=== PATIENT | female | born 1965 | race Caucasian/White ===

== ENCOUNTER 2017-11-08 12:44 | Emergency (ER) | payer BC ==
[2017-11-08 14:25] VITALS: BP 106/55
[2017-11-08] MEDS ORDERED: Ketorolac INJ* 30 MG/ML 1 ML VIAL IM ONE (14:48)
--- NOTE | 2017-11-08 14:48 | UC ---
Skin Complaint HPI - HPI Summary HPI Summary: patient bit by insect on right buttock, bites present, red, no sign of infection, causes pain down the leg - History of Current Complaint Hx Obtained From: Patient ?: No Onset/Duration: Sudden Onset, Lasting Days Skin Exposure Onset/Duration: Days Ago Timing: Constant Onset Severity: Moderate Current Severity: Moderate Pain Intensity: 6 Location: Discrete Character: Redness, Raised, Painful Aggravating Factor(s): Nothing Alleviating Factor(s): Nothing Associated Signs & Symptoms: Positive: Negative <Jody Mccallum - Last Filed: 11/08/17 14:41> <Cheyanne Thomason - Last Filed: 11/09/17 07:46> - History of Current Complaint Chief Complaint: UCWounds Time Seen by Provider: 11/08/17 14:27 Stated Complaint: POSS SPIDER BITE (1 WK AGO) - RT LEG - Allergy/Home Medications Allergies/Adverse Reactions: Allergies Allergy/AdvReac Type Severity Reaction Status Date / Time No Known Allergies Allergy Verified 11/08/17 14:14 Home Medications: Home Medications Acetaminophen [8Hr Arthritis Pain Relief] 2 tab PO Q8HR PRN 11/08/17 [History Confirmed 11/08/17] Aspirin/Acetaminophen/Caffeine [Excedrin Migraine Caplet] 2 tab PO Q8HR PRN [History Confirmed 11/08/17] Carbamazepine [Tegretol] 200 mg PO BID 11/08/17 [History Confirmed 11/08/17] Eprim/Linoleic/Gamolenic/Cranb [Evening [place] Oil Softgel] 1 tab PO DAILY [History Confirmed 11/08/17] Topiramate [Topamax] 100 mg PO DAILY 11/08/17 [History Confirmed 11/08/17] buPROPion SR TAB* [Wellbutrin SR TAB*] 1 tab PO DAILY 11/08/17 [History Confirmed 11/08/17] carBAMazepine TAB(*) [Tegretol TAB(*)] 400 mg PO DAILY 11/08/17 [History Confirmed 11/08/17] Review of Systems Constitutional: Negative Skin: Other - bug bites Eyes: Negative ENT: Negative Respiratory: Negative Cardiovascular: Negative Gastrointestinal: Negative Genitourinary: Negative Motor: Negative Neurovascular: Negative Musculoskeletal: Negative Neurological: Negative Psychological: Negative Is Patient Immunocompromised?: No All Other Systems Reviewed And Are Negative: Yes <Jody Mccallum - Last Filed: 11/08/17 14:41> PMH/Surg Hx/FS Hx/Imm Hx Previously Healthy: Yes - Surgical History Surgical History: Yes Surgery Procedure, Year, and Place: BILATERAL KNEES, APPENDIX, TUBES TIED AND HYSTERECTOMY; Bladder Biopsy - Family History Known Family History: Positive: Cardiac Disease, Hypertension - Social History Alcohol Use: Occasionally Substance Use Type: Marijuana Substance Use Comment - Amount & Last Used: Daily Smoking Status (MU): Heavy Every Day Tobacco Smoker Type: Cigarettes Amount Used/How Often: 1/2 ppd Household Exposure Type: Cigarettes <Jody Mccallum - Last Filed: 11/08/17 14:41> Physical Exam Triage Information Reviewed: Yes Appearance: Well-Appearing, Well-Nourished, Pain Distress Vital Signs: Initial Vital Signs Temp 98.8 F 11/08/17 14:20 Pulse 68 11/08/17 14:20 Resp 16 11/08/17 14:20 BP 106/55 11/08/17 14:20 Pulse Ox 99 11/08/17 14:20 Vital Signs Reviewed: Yes Eye Exam: Normal ENT Exam: Normal Dental Exam: Normal Neck exam: Normal Respiratory Exam: Normal Respiratory: Positive: Chest non-tender, Lungs clear, Normal breath sounds Cardiovascular Exam: Normal Cardiovascular: Positive: RRR, No Murmur, Pulses Normal Abdominal Exam: Normal Abdomen Description: Positive: Nontender, No Organomegaly, Soft Bowel Sounds: Positive: Present Musculoskeletal Exam: Normal Neurological Exam: Normal Psychological Exam: Normal Skin: Positive: significant lesion(s) - cluster of raised red bumps on right buttock, discreet, no sign of infection <Jody Mccallum - Last Filed: 11/08/17 14:41> Vital Signs: Initial Vital Signs Temp 98.8 F 11/08/17 14:20 Pulse 68 11/08/17 14:20 Resp 16 11/08/17 14:20 BP 106/55 11/08/17 14:20 Pulse Ox 99 11/08/17 14:20 <Cheyanne Thomason - Last Filed: 11/09/17 07:46> Course/Dx - Course Course Of Treatment: hx obtained, exam performed ,meds reviewed, treated for reaction to bug bite - Differential Diagnoses - Skin Complaint Differential Diagnoses: Abscess, Allergic Reaction, Cellulitis, Contact Dermatitis, MRSA, Urticaria - Diagnoses Provider Diagnoses: big bite reaction <Jody Mccallum - Last Filed: 11/08/17 14:41> Discharge - Sign-Out/Discharge Documenting (check all that apply): Discharge - Billing Disposition and Condition Condition: STABLE Disposition: HOME <Jody Mccallum - Last Filed: 11/08/17 14:41> - Billing Disposition and Condition Condition: STABLE Disposition: HOME <Cheyanne Thomason - Last Filed: 11/09/17 07:46> - Discharge Plan Condition: Stable Disposition: HOME Prescriptions: Ibuprofen TAB* [Motrin TAB* 600 MG] 600 mg PO Q6H PRN #24 tab PRN Reason: Pain predniSONE TAB* [Deltasone TAB*] 40 mg PO DAILY #17 tab Patient Education Materials: Insect Bite or Sting (ED) Referrals: Jayy Burnham MD [Primary Care Provider] - Additional Instructions: 1. take the medication as prescribed. 2. warm compresses or soaks multiple times a day 3. can do benadryl for inching 4. FOllow up if not improving Attestation Statement User Type: Provider - I was available for consult. This patient was seen by the OLE[facility]IO. The patient was not presented to, seen by, or examined by me. -Len <Cheyanne Thomason - Last Filed: 11/09/17 07:46>
== END 2017-11-08 15:11 | disposition home or self-care (01) ==
LOC: UCCORT 12:44
DX: S30.860A Insect bite (nonvenomous) of lower back and pelvis, initial encounter (principal); W57.XXXA Bitten or stung by nonvenomous insect and other nonvenomous arthropods, initial encounter; Y92.9 Unspecified place or not applicable; F17.210 Nicotine dependence, cigarettes, uncomplicated
CPT/HCPCS: 96372; 99212; G0463; J1885

== ENCOUNTER 2021-08-15 09:13 | Inpatient (IN) ==
[~2021-08-15 09:13] MED LIST: Buffered Lidocaine 1% SYRIN 1 ml INTRADERM ONE; Lactated Ringers 1000 ml BAG 1,000 ML IV SCH
[2021-08-15] MEDS ORDERED: ceFAZolin 2 GM PREMIX 2 GM/50 ML BAG ONE (09:31)
[2021-08-15] MEDS ORDERED: Ondansetron 4 mg VIAL 2 MG/ML 2 ml VIAL ONE (09:41)
[2021-08-15] MEDS ORDERED: Dexamethasone IV 4 MG/ML VIAL 1 ml VIAL ONE (09:41)
[2021-08-15] MEDS ORDERED: Propofol 10 MG/ML 20 ML BTL ONE (09:41)
[2021-08-15] MEDS ORDERED: Lidocaine 2% PF 5 ML VIAL ONE (09:41)
[2021-08-15] MEDS ORDERED: Midazolam 2 mg/2 ml VIAL 1 mg/ml 2 ml VIAL (2 mg) ONE ×2 (09:41→10:25)
[2021-08-15] MEDS ORDERED: fentaNYL 100 mcg/2 ml 50 MCG/ML VIAL ONE (09:41)
[2021-08-15] MEDS ORDERED: HYDROmorphone 0.5 MG/0.5 ML SYRINGE ONE (09:42)
[2021-08-15] MEDS ORDERED: ROPIVACAINE 5 MG/ML 30 ML BTL (0.5%) ONE (10:24)
[2021-08-15] MEDS ORDERED: Lidocaine 1% MPF 5 ML VIAL ONE (10:24)
[2021-08-15] MEDS ORDERED: Ropivacaine 5 MG/ML 20 ML VIAL 0.5% (100 MG) ONE ×2 (11:12→13:10)
[2021-08-15] MEDS ORDERED: diPHENhydraMINE IV 50 MG/ML 1 ml VIAL (BENADRYL) IV PRN (12:50)
[2021-08-15] MEDS ORDERED: Morphine 2 MG/ML SYRINGE IV PRN (12:50)
[2021-08-15] MEDS ORDERED: Ondansetron ODT 4 mg TAB 4 MG TAB PO PRN (12:50)
[2021-08-15] MEDS ORDERED: Ondansetron 4 mg VIAL 2 MG/ML 2 ml VIAL IV PRN (12:50)
[2021-08-15] MEDS ORDERED: Lactulose 30 ml UDC PO PRN (12:50)
[2021-08-15] MEDS ORDERED: diPHENhydraMINE 25 mg TAB PO PRN (12:50)
[2021-08-15] MEDS ORDERED: Magnesium Hydroxide LIQ 30 ML UDC PO PRN (12:50)
[2021-08-15] MEDS ORDERED: Albuterol HFA INHALER 8 gm MDI INH PRN (13:03)
[2021-08-15] MEDS ORDERED: DiMENhydriNATE IV 50 mg/ml 1 ml VIAL IV PUSH PRN (15:02)
[2021-08-15] MEDS ORDERED: Naloxone 0.4 mg VIAL 0.4 mg/ml 1 ml VIAL IV PRN (15:02)
[2021-08-15] MEDS ORDERED: oxyCODONE/Acetamin 5/325 mg TAB PO PRN (15:02)
[2021-08-15] MEDS ORDERED: HYDROmorphone 1 MG/1 ML SYRINGE ONE (15:23)
[2021-08-15] MEDS: HYDROmorphone 1 MG/1 ML SYRINGE IV PRN ×2 (15:25→15:35)
[2021-08-15] MEDS: Lactated Ringers 1000 ml BAG 1,000 ML IV SCH (16:46)
[2021-08-15] MEDS: ceFAZolin 1 GM ADVAN 1 GM in NS 0.9% 50 ML 50 ML IVPB SCH (20:01)
[2021-08-15] MEDS ORDERED: POLYETHYLENE GLYCOL OPHTHALMIC SCH (21:00)
[2021-08-15] MEDS: Magnesium Hydroxide LIQ 30 ML UDC PO SCH (21:04)
[2021-08-16] MEDS: ceFAZolin 1 GM ADVAN 1 GM in NS 0.9% 50 ML 50 ML IVPB SCH ×2 (03:56→12:12)
[2021-08-16] MEDS: Lactated Ringers 1000 ml BAG 1,000 ML IV SCH (03:56)
[2021-08-16 06:21] LABS: Hematocrit 32 % (35-47); Hemoglobin 10.8 g/dL (12.0-16.0); Mean Platelet Volume 8.8 fL (7.4-10.4); Platelet Count 184 10^3/uL (150-450)
[2021-08-16 06:39] LABS: Calcium 8.2 mg/dL (8.6-10.3); Potassium 4.2 mmol/L (3.5-5.0); eGFR CKD-EPI 79.4 (>60)
[2021-08-16] MEDS ORDERED: Vitamin THERAPEUTIC TAB PO SCH (09:00)
[2021-08-16] MEDS ORDERED: Pneumococcal Vac 23-Polyvalent IM ONE (09:00)
[2021-08-16] MEDS: Magnesium Hydroxide LIQ 30 ML UDC PO SCH (09:11)
[2021-08-16 11:12] VITALS: BP 111/64
[2021-08-16] MEDS ORDERED: Enoxaparin 30 MG/0.3 ML SYR SUBCUT SCH (12:00)
[2021-08-16] MEDS ORDERED: Flu vaccine *QUAD* 2021-22* 0.5 ML SYRINGE IM ONE (14:00)
== END 2021-08-16 14:20 | disposition home or self-care (01) | DRG 302 ==
LOC: AA 09:13 → SSU 16:33
PROVIDERS: ADMIT Orthopaedic Surgery Adult Reconstructive Orthopaedic Surgery; ATTEND Orthopaedic Surgery Adult Reconstructive Orthopaedic Surgery